=== PATIENT | female | born 1990 | race Caucasian/White ===

== ENCOUNTER 2017-01-05 06:44 | Emergency (ER) | payer SELFPAY ==
[~2017-01-05] VITALS: Ht 175.3 cm; Wt 102.0 kg
[~2017-01-05 06:44] MED LIST: BACTRIM,SEPT1 TABLET PO; VICODIN 5-3001 EACH PO
[2017-01-05] MEDS ORDERED: FLEXERIL10 MG PO (07:48)
[2017-01-05] MEDS ORDERED: TYLENOL WITH C1 EACH PO (07:48)
[2017-01-05 07:54] VITALS: BP 129/90
== END 2017-01-05 07:55 | disposition home or self-care (01) ==
LOC: EME 06:44
DX: S46.911A Strain of unspecified muscle, fascia and tendon at shoulder and upper arm level, right arm, initial encounter (principal); X50.9XXA Other and unspecified overexertion or strenuous movements or postures, initial encounter; Y93.89 Activity, other specified
CPT/HCPCS: 71020; 73030; 99281; 99283

== ENCOUNTER 2017-01-07 17:41 | Emergency (ER) | payer SELFPAY ==
[~2017-01-07] VITALS: Ht 175.3 cm; Wt 100.1 kg
[~2017-01-07 17:41] MED LIST changes: +FLEXERIL10 MG PO; +TYLENOL WITH C1 EACH PO
[2017-01-07] MEDS ORDERED: MEDROL DOSEPAK4 MG PO (19:29)
[2017-01-07] MEDS ORDERED: LIDODERM 5% P1 PATCH TD (19:29)
[2017-01-07] MEDS ORDERED: PERCOCET 5/31 TABLET PO (19:30)
[2017-01-07 19:44] VITALS: BP 132/85
== END 2017-01-07 19:49 | disposition home or self-care (01) ==
LOC: EME 17:41
DX: S29.012A Strain of muscle and tendon of back wall of thorax, initial encounter (principal); X50.0XXA Overexertion from strenuous movement or load, initial encounter; M79.601 Pain in right arm
CPT/HCPCS: 99281; 99283; J7512

== ENCOUNTER 2017-02-19 13:42 | Emergency (ER) | payer SELFPAY ==
[~2017-02-19] VITALS: Ht 172.7 cm; Wt 100.8 kg
[~2017-02-19 13:42] MED LIST changes: +LIDODERM 5% P1 PATCH TD; +MEDROL DOSEPAK4 MG PO; +PERCOCET 5/31 TABLET PO
[2017-02-19] MEDS ORDERED: KLONOPIN1 MG PO ×2 (14:20→15:53)
[2017-02-19] MEDS ORDERED: WELLBUTRIN SR150 MG PO (15:53)
[2017-02-19 16:13] VITALS: BP 132/87
== END 2017-02-19 16:14 | disposition home or self-care (01) ==
LOC: EME 13:42
DX: F41.9 Anxiety disorder, unspecified (principal); F32.9 Major depressive disorder, single episode, unspecified; T43.296A Underdosing of other antidepressants, initial encounter; Z91.128 Patient's intentional underdosing of medication regimen for other reason; Z76.0 Encounter for issue of repeat prescription
CPT/HCPCS: 90839; 99281; 99283